=== PATIENT | female | born 1990 | race Caucasian/White ===

== ENCOUNTER → 2018-04-19 | Outpatient (REF) | payer OTHER | LOC: M LAB REF 04-20 11:18 | DX: N30.01 Acute cystitis with hematuria (principal) | CPT/HCPCS: 87186 ==

== ENCOUNTER 2021-08-05 13:45 | Outpatient (RCR) | payer OTHER | END 2021-08-11 | LOC: M PT 13:45 | PROVIDERS: ATTEND Family Medicine | DX: M75.21 Bicipital tendinitis, right shoulder (principal) ==

== ENCOUNTER 2021-08-25 14:30 | Outpatient (RCR) | payer OTHER | END 2021-09-11 | LOC: M PT 14:30 | PROVIDERS: ATTEND Family Medicine | DX: M75.21 Bicipital tendinitis, right shoulder (principal) ==

== ENCOUNTER 2022-03-30 17:59 | Emergency (ER) | payer OTHER ==
[~2022-03-30] VITALS: Ht 162.6 cm; Wt 130.7 kg
[2022-03-30 21:19] LABS: BASO % 0.5 % (0.0-1.0); EOS % 0.1 % (0.0-3.0); HEMATOCRIT 42.7 % (36.0-47.0); HEMOGLOBIN 14.2 g/dl (12.0-15.5); LYMPH # 1.2 10^3/uL (1.5-5.0); LYMPH % 13.9 % (24.0-44.0); MEAN CORPUSCULAR HEMOGLOBIN 28.6 pg (27.0-33.0); MEAN CORPUSCULAR HGB CONC 33.3 g/dl (32.0-36.5); MEAN CORPUSCULAR VOLUME 86.1 fl (80.0-96.0); MONO # 0.3 10^3/uL (0.0-0.8); MONO % 3.1 % (2.0-8.0); NEUTROPHILS # 7.2 10^3/uL (1.5-8.5); NEUTROPHILS % 81.9 % (36.0-66.0); PLATELET COUNT, AUTOMATED 254 10^3/uL (150-450); RED BLOOD COUNT 4.96 10^6/uL (4.00-5.40); WHITE BLOOD COUNT 8.8 10^3/uL (4.0-10.0)
[2022-03-30 22:04] LABS: ALBUMIN 3.8 GM/DL (3.2-5.2); ALT/SGPT 27 U/L (12-78); BILIRUBIN,DIRECT 0.1 MG/DL (0.0-0.2); BILIRUBIN,TOTAL 0.4 MG/DL (0.2-1.0); LIPASE 155 U/L (73-393); TOTAL PROTEIN 8.1 GM/DL (6.4-8.2)
[2022-03-30 22:35] LABS: BLOOD UREA NITROGEN 11 MG/DL (7-18); CALCIUM LEVEL 8.7 MG/DL (8.5-10.1); CARBON DIOXIDE LEVEL 24 MEQ/L (21-32); CHLORIDE LEVEL 106 MEQ/L (98-107); CREATININE FOR GFR 0.72 MG/DL (0.55-1.30); GLOMERULAR FILTRATION RATE > 60.0 (>60); GLUCOSE, FASTING 104 MG/DL (70-100); POTASSIUM SERUM 4.3 MEQ/L (3.5-5.1); SODIUM LEVEL 137 MEQ/L (136-145)
[2022-03-30] MEDS ORDERED: ONDA4TAB6 PO (22:41)
[2022-03-30] MEDS ORDERED: ONDANSETRON 4MG ORAL DISINTEGRATING TAB PO ONE (22:50)
[2022-03-30 22:58] VITALS: BP 124/82
== END 2022-03-30 22:59 | disposition home or self-care (01) ==
LOC: M ED 17:59
DX: A08.4 Viral intestinal infection, unspecified (principal); F10.10 Alcohol abuse, uncomplicated; Z91.040 Latex allergy status; Z79.899 Other long term (current) drug therapy

== ENCOUNTER → 2022-11-05 | Outpatient (CLI) | payer OTHER ==
[~2022-11-05] MED LIST: ONDA4TAB6 PO
[2022-11-05 17:26] LABS: HEMOGLOBIN 12.4 g/dl (12.0-15.5); MEAN CORPUSCULAR HEMOGLOBIN 28.2 pg (27.0-33.0); MEAN CORPUSCULAR HGB CONC 33.5 g/dl (32.0-36.5); MEAN CORPUSCULAR VOLUME 84.1 fl (80.0-96.0); PLATELET COUNT, AUTOMATED 222 10^3/uL (150-450)
[2022-11-05 17:30] LABS: HEMOGLOBIN A1c 4.9 % (4.0-6.0)
[2022-11-05 17:44] LABS: ALBUMIN 3.4 G/DL (3.2-5.2); ALKALINE PHOSPHATASE 92 U/L (46-116); ALT/SGPT 92 U/L (7.0-40); AST/SGOT 59 U/L (<34); BILIRUBIN,DIRECT 0.1 MG/DL (<0.4); BILIRUBIN,TOTAL 0.3 MG/DL (0.3-1.2); BLOOD UREA NITROGEN 11 MG/DL (9-23); CALCIUM LEVEL 8.7 MG/DL (8.5-10.1); CARBON DIOXIDE LEVEL 27 MMOL/L (20-31); CHLORIDE LEVEL 107 MMOL/L (98-107); CHOLESTEROL LEVEL 118 MG/DL (<200); CHOLESTEROL RISK RATIO 3.45 (<5); CREATININE FOR GFR 0.69 MG/DL (0.55-1.30); GLOMERULAR FILTRATION RATE > 60.0 (>60); GLUCOSE, FASTING 78 MG/DL (60-100); HDL CHOLESTEROL 34.2 MG/DL (>40); NON-HDL-C 83.8 MG/DL; PHOSPHORUS LEVEL 3.6 MG/DL (2.5-4.9); POTASSIUM SERUM 3.8 MMOL/L (3.5-5.1); SODIUM LEVEL 141 MMOL/L (136-145); TOTAL PROTEIN 6.4 G/DL (5.7-8.2); TRIGLYCERIDES LEVEL 189 MG/DL (<150)
[2022-11-05 17:46] LABS: THYROID STIMULATING HORMONE 2.426 uIU/ML (0.55-4.78); TOTAL 25(OH) VITAMIN D 12.5 NG/ML (20.0-100.0)
[2022-11-05 19:42] LABS: ATYPICAL LYMPH 5 % (0-5); BASOPHILS 1 % (0-1); EOSINOPHILS 4 % (0-3); LYMPHOCYTES 34 % (16-44); MONOCYTES 8 % (0-5); NEUTROPHILS 48 % (28-66)
[2022-11-05 19:43] LABS: PLATELET ESTIMATE NORMAL (NORMAL)
== END ==
LOC: M EKG 16:16
PROVIDERS: ATTEND Registered Nurse
DX: F32.9 Major depressive disorder, single episode, unspecified (principal); E55.9 Vitamin D deficiency, unspecified; Z51.81 Encounter for therapeutic drug level monitoring; Z13.9 Encounter for screening, unspecified; Z79.899 Other long term (current) drug therapy

== ENCOUNTER 2023-07-27 05:11 | Emergency (ER) | payer OTHER ==
[~2023-07-27] VITALS: Ht 162.6 cm; Wt 149.9 kg
[2023-07-27] MEDS ORDERED: BUPR75TA5 (05:23)
[2023-07-27 06:36] LABS: BASO % 0.6 % (0.0-1.0); EOS # 0.2 10^3/uL (0.0-0.5); EOS % 2.8 % (0.0-3.0); HEMATOCRIT 38.1 % (36.0-47.0); HEMOGLOBIN 12.6 g/dl (12.0-15.5); LYMPH # 2.1 10^3/uL (1.5-5.0); LYMPH % 31.5 % (24.0-44.0); MEAN CORPUSCULAR HEMOGLOBIN 27.5 pg (27.0-33.0); MEAN CORPUSCULAR HGB CONC 33.1 g/dl (32.0-36.5); MONO # 0.5 10^3/uL (0.0-0.8); MONO % 8.1 % (2.0-8.0); NEUTROPHILS # 3.7 10^3/uL (1.5-8.5); NEUTROPHILS % 56.8 % (36.0-66.0); PLATELET COUNT, AUTOMATED 214 10^3/uL (150-450); RED BLOOD COUNT 4.59 10^6/uL (4.00-5.40); WHITE BLOOD COUNT 6.5 10^3/uL (4.0-10.0)
[2023-07-27 06:40] LABS: BLOOD UREA NITROGEN 11 MG/DL (9-23); CALCIUM LEVEL 8.9 MG/DL (8.5-10.1); CARBON DIOXIDE LEVEL 26 MMOL/L (20-31); CHLORIDE LEVEL 105 MMOL/L (98-107); CK-MB VALUE MASS 1.8 NG/ML (<3.6); CREATININE FOR GFR 0.72 MG/DL (0.55-1.30); GLOMERULAR FILTRATION RATE > 60.0 (>60); GLUCOSE, FASTING 94 MG/DL (60-100); POTASSIUM SERUM 3.6 MMOL/L (3.5-5.1); SODIUM LEVEL 137 MMOL/L (136-145)
[2023-07-27 06:41] LABS: CPK CREATINE PHOSPHOKINASE 245 U/L (34-145); MB/CK RELATIVE INDEX 0.73 (< OR =4)
[2023-07-27] MEDS ORDERED: ISOVUE-370 76% 100ML VIAL As Ordered ONE (08:11)
[2023-07-27] MEDS: ASPIRIN 325 MG TAB PO ONE (08:25)
[2023-07-27 08:52] LABS: CK-MB VALUE MASS 1.5 NG/ML (<3.6)
[2023-07-27 09:00] LABS: CPK CREATINE PHOSPHOKINASE 228 U/L (34-145); MB/CK RELATIVE INDEX 0.65 (< OR =4)
[2023-07-27 10:00] VITALS: BP 108/56; TEMP 97.3; O2SAT 99
== END 2023-07-27 10:18 | disposition home or self-care (01) ==
LOC: M ED 05:11
DX: R07.9 Chest pain, unspecified (principal); R91.1 Solitary pulmonary nodule; E04.1 Nontoxic single thyroid nodule; F17.200 Nicotine dependence, unspecified, uncomplicated; Z91.040 Latex allergy status; Z79.899 Other long term (current) drug therapy
CPT/HCPCS: 36415; 71045; 71275; 80048; 82550; 82553; 85025; 93005; 93041; 94760; 99285; Q9967

== ENCOUNTER 2023-10-18 20:15 | Emergency (ER) | payer OTHER ==
[~2023-10-18] VITALS: Ht 162.6 cm; Wt 149.1 kg
[~2023-10-18 20:15] MED LIST changes: +BUPR75TA5
[2023-10-18] MEDS ORDERED: RISP0.5T82 (20:27)
[2023-10-18] MEDS ORDERED: AMPH1CAP14 (20:27)
[2023-10-19] MEDS ORDERED: LIDO5DIS41 TD (03:52)
[2023-10-19] MEDS ORDERED: IBUP-1022 PO (03:52)
[2023-10-19] MEDS: IBUPROFEN 600MG TAB PO ONE (03:55)
[2023-10-19] MEDS: LIDOCAINE 5% (LIDODERM) PATCH TD ONE (03:55)
[2023-10-19 04:13] VITALS: BP 124/77; TEMP 98.8; O2SAT 98
== END 2023-10-19 04:17 | disposition home or self-care (01) ==
LOC: M ED 20:15
DX: M25.511 Pain in right shoulder (principal); X50.0XXA Overexertion from strenuous movement or load, initial encounter; Y92.9 Unspecified place or not applicable; Y93.89 Activity, other specified; Y99.0 Civilian activity done for income or pay; Z91.040 Latex allergy status; Z79.1 Long term (current) use of non-steroidal anti-inflammatories (NSAID); Z79.899 Other long term (current) drug therapy

== ENCOUNTER → 2024-04-17 | Outpatient (REF) | payer OTHER ==
[~2024-04-17] MED LIST changes: +AMPH1CAP14; +ATOM80CA6 PO; +IBUP-1022 PO; +LIDO5DIS41 TD; +ONDA-282 PO; -ONDA4TAB6 PO; +RISP0.5T82
== END ==
LOC: M LAB REF 16:39
PROVIDERS: ATTEND Physician Assistant Medical
DX: J02.9 Acute pharyngitis, unspecified (principal)

== ENCOUNTER 2024-04-19 13:44 | Inpatient (IN) | payer OTHER ==
[~2024-04-19] VITALS: Ht 162.6 cm; Wt 154.8 kg
[~2024-04-19 13:44] MED LIST changes: -ATOM80CA6 PO
[2024-04-19] MEDS: BOOSTRIX VACCINE (TETANUS/DIPHTH/ACEL. PERTUSSIS) 0.5ML SYR IM.IMMUN ONE (15:32)
[2024-04-19] MEDS: ACETAMINOPHEN 325 MG TAB PO ONE (15:32)
[2024-04-19] MEDS: NS 1,000 ML IV ONE (16:10)
[2024-04-19] MEDS ORDERED: ATOM80CA6 PO (16:51)
[2024-04-19] MEDS ORDERED: HOME MED LIST COMPLETE! XX SCH (16:55)
[2024-04-19 17:06] LABS: BASO % 0.4 % (0.0-1.0); EOS # 0.2 10^3/uL (0.0-0.5); EOS % 1.9 % (0.0-3.0); HEMATOCRIT 39.3 % (36.0-47.0); HEMOGLOBIN 13.1 g/dl (12.0-15.5); LYMPH # 1.4 10^3/uL (1.5-5.0); MEAN CORPUSCULAR HEMOGLOBIN 27.6 pg (27.0-33.0); MEAN CORPUSCULAR HGB CONC 33.3 g/dl (32.0-36.5); MEAN CORPUSCULAR VOLUME 82.9 fl (80.0-96.0); MONO # 0.4 10^3/uL (0.0-0.8); MONO % 5.3 % (2.0-8.0); PLATELET COUNT, AUTOMATED 229 10^3/uL (150-450); RED BLOOD COUNT 4.74 10^6/uL (4.00-5.40)
[2024-04-19 17:27] LABS: BLOOD UREA NITROGEN 11 MG/DL (9-23); CALCIUM LEVEL 9.2 MG/DL (8.5-10.1); CARBON DIOXIDE LEVEL 28 MMOL/L (20-31); CHLORIDE LEVEL 104 MMOL/L (98-107); CREATININE FOR GFR 0.71 MG/DL (0.55-1.30); GLOMERULAR FILTRATION RATE > 60.0 (>60); GLUCOSE, FASTING 81 MG/DL (60-100); SODIUM LEVEL 137 MMOL/L (136-145)
[2024-04-19 17:34] LABS: PROCALCITONIN <0.04 ng/ml
[2024-04-19 18:00] VITALS: BP 113/77; TEMP 98.2; O2SAT 98
[2024-04-19] MEDS: MORPHINE 4 MG/ML 1ML VIAL IV PRN (18:21)
[2024-04-19] MEDS: KETOROLAC 30 MG/ML 1ML VIAL IV PRN (19:44)
[2024-04-19 20:08] VITALS: BP 98/57; TEMP 97.9; O2SAT 98
[2024-04-19] MEDS: HEPARIN SOD (PORCINE) 5000UNITS/ML 1ML VIAL/SYRINGE SQ SCH (21:20)
[2024-04-19] MEDS: RAMELTEON 8 MG TAB (ROZEREM) PO PRN (21:58)
[2024-04-20] VITALS (9 sets, daily range): BP systolic 98–133; BP diastolic 57–83; TEMP 97.2–98.4; O2SAT 93–97
[2024-04-20 06:04] LABS: HEMATOCRIT 35.4 % (36.0-47.0); HEMOGLOBIN 11.8 g/dl (12.0-15.5); MEAN CORPUSCULAR HEMOGLOBIN 27.5 pg (27.0-33.0); MEAN CORPUSCULAR HGB CONC 33.3 g/dl (32.0-36.5); MEAN CORPUSCULAR VOLUME 82.5 fl (80.0-96.0); PLATELET COUNT, AUTOMATED 205 10^3/uL (150-450); RED BLOOD COUNT 4.29 10^6/uL (4.00-5.40); WHITE BLOOD COUNT 5.3 10^3/uL (4.0-10.0)
[2024-04-20 06:32] LABS: BLOOD UREA NITROGEN 11 MG/DL (9-23); CALCIUM LEVEL 8.6 MG/DL (8.5-10.1); CARBON DIOXIDE LEVEL 27 MMOL/L (20-31); CHLORIDE LEVEL 105 MMOL/L (98-107); GLOMERULAR FILTRATION RATE > 60.0 (>60); GLUCOSE, FASTING 105 MG/DL (60-100); POTASSIUM SERUM 3.8 MMOL/L (3.5-5.1); SODIUM LEVEL 138 MMOL/L (136-145)
[2024-04-20] MEDS: LR 1,000 ML IV SCH (08:20)
[2024-04-20] MEDS: ATOMOXETINE HCL 40 MG CAP (STRATTERA) PO SCH (09:00)
[2024-04-20 12:43] LABS: URINE PREG TEST NEGATIVE (NEGATIVE)
[2024-04-20] MEDS ORDERED: propofoL 200 MG/20 ML VIAL As Ordered ONE (14:28)
[2024-04-20] MEDS ORDERED: ROCURONIUM BROMIDE 50MG/5ML VIAL As Ordered ONE (14:28)
[2024-04-20] MEDS ORDERED: LIDOCAINE 2% 100MG/5ML SDV (FOR ANES.) As Ordered ONE (14:28)
[2024-04-20] MEDS ORDERED: GLYCOPYRROLATE INJ 0.2 MG/ML 2 ML VIAL As Ordered ONE (14:29)
[2024-04-20] MEDS ORDERED: ONDANSETRON 4MG 2ML VIAL As Ordered ONE (14:29)
[2024-04-20] MEDS ORDERED: MIDAZOLAM INJ 2MG/2ML VIAL As Ordered ONE (14:35)
[2024-04-20] MEDS ORDERED: fentaNYL 100 MCG/2 ML INJECTION As Ordered ONE (14:35)
[2024-04-20] MEDS ORDERED: KETAMINE HCL 200MG/20ML VIAL As Ordered ONE (15:05)
[2024-04-20] MEDS: ceFAZolin 1GM VIAL As Ordered ONE (15:15)
[2024-04-20] MEDS: ceFAZolin 2 GM/D5W 50 ML IV BAG As Ordered ONE (15:15)
[2024-04-20] MEDS ORDERED: ePHEDrine SULFATE 25 MG/5 ML(5MG/ML) SYRINGE As Ordered ONE (15:55)
[2024-04-20] MEDS ORDERED: SUGAMMADEX SODIUM 500 MG/5 ML VIAL (BRIDION) As Ordered ONE (16:33)
[2024-04-20] MEDS: fentaNYL 100 MCG/2 ML INJECTION IV PRN (17:21)
[2024-04-20] MEDS ORDERED: HYDROMORPHONE HCL 0.5 MG/ 0.5 ML SYRINGE IV PRN (17:40)
[2024-04-20] MEDS ORDERED: ONDANSETRON 4MG 2ML VIAL IV PRN (17:40)
[2024-04-20] MEDS: oxyCODONE 5MG TAB PO PRN (17:51)
[2024-04-20] MEDS: METOCLOPRAMIDE INJ 10MG/2ML VIAL IV PRN (18:02)
[2024-04-20] MEDS: ACETAMINOPHEN 500 MG TAB PO PRN (23:09)
[2024-04-20] MEDS: ceFAZolin SOD 2 GM in IV 1 EA IV SCH (23:09)
[2024-04-21 04:02] VITALS: BP 121/77; TEMP 98.1; O2SAT 93
[2024-04-21] MEDS: PERCOCET 5MG/325MG TAB PO PRN ×2 (11:00→22:20)
[2024-04-21 11:01] VITALS: BP 120/77; TEMP 98.1; O2SAT 94
[2024-04-21 12:35] VITALS: BP 122/66; TEMP 97.9
[2024-04-21] MEDS: ACETAMINOPHEN 325 MG TAB PO PRN (14:51)
[2024-04-21] MEDS: RIVAROXABAN 10MG TAB (XARELTO) PO SCH (17:04)
[2024-04-22] MEDS: KETOROLAC 30 MG/ML 1ML VIAL IV ONE (01:02)
[2024-04-22] MEDS: METHOCARBAMOL 1,000 MG/10 ML VIAL IV ONE (01:02)
[2024-04-22 04:00] VITALS: BP 112/72; TEMP 96.8; O2SAT 93
[2024-04-22 07:39] LABS: HEMATOCRIT 31.5 % (36.0-47.0); HEMOGLOBIN 10.5 g/dl (12.0-15.5); MEAN CORPUSCULAR HEMOGLOBIN 27.9 pg (27.0-33.0); MEAN CORPUSCULAR HGB CONC 33.3 g/dl (32.0-36.5); MEAN CORPUSCULAR VOLUME 83.6 fl (80.0-96.0); PLATELET COUNT, AUTOMATED 189 10^3/uL (150-450); RED BLOOD COUNT 3.77 10^6/uL (4.00-5.40); WHITE BLOOD COUNT 6.6 10^3/uL (4.0-10.0)
[2024-04-22] MEDS: methocarbamoL 750 MG TAB PO PRN (10:42)
[2024-04-22] MEDS: SENNA 8.6 MG TAB (SENOKOT) PO PRN (18:18)
[2024-04-23 06:33] VITALS: BP 111/72; TEMP 98.6; O2SAT 92
[2024-04-23] MEDS: BISACODYL 10MG SUPP PR ONE (08:06)
[2024-04-23] MEDS: MIRALAX *UNIT DOSE* 17GM PACKET PO PRN (20:48)
[2024-04-24 03:54] VITALS: BP 106/69; TEMP 97.5; O2SAT 94
[2024-04-24 08:30] VITALS: BP 116/82; TEMP 98.6; O2SAT 97
[2024-04-25 03:58] VITALS: BP 114/77; TEMP 98.1; O2SAT 95
[2024-04-25 06:10] LABS: HEMATOCRIT 31.8 % (36.0-47.0); HEMOGLOBIN 10.2 g/dl (12.0-15.5); MEAN CORPUSCULAR HEMOGLOBIN 27.3 pg (27.0-33.0); MEAN CORPUSCULAR HGB CONC 32.1 g/dl (32.0-36.5); PLATELET COUNT, AUTOMATED 259 10^3/uL (150-450); RED BLOOD COUNT 3.74 10^6/uL (4.00-5.40); WHITE BLOOD COUNT 6.4 10^3/uL (4.0-10.0)
[2024-04-26 05:28] VITALS: BP 119/66; TEMP 97.5; O2SAT 96
[2024-04-26 15:18] LABS: CK-MB VALUE MASS < 1.0 NG/ML (<3.6)
[2024-04-26 15:19] LABS: CPK CREATINE PHOSPHOKINASE 274 U/L (34-145); MB/CK RELATIVE INDEX 0.36 (< OR =4)
[2024-04-27 04:30] VITALS: BP 118/70; TEMP 98.2; O2SAT 97
[2024-04-28 04:30] VITALS: BP 115/68; TEMP 97.2; O2SAT 97
[2024-04-28 06:05] LABS: HEMATOCRIT 33.3 % (36.0-47.0); HEMOGLOBIN 10.6 g/dl (12.0-15.5); MEAN CORPUSCULAR HEMOGLOBIN 26.8 pg (27.0-33.0); MEAN CORPUSCULAR HGB CONC 31.8 g/dl (32.0-36.5); MEAN CORPUSCULAR VOLUME 84.3 fl (80.0-96.0); PLATELET COUNT, AUTOMATED 307 10^3/uL (150-450); RED BLOOD COUNT 3.95 10^6/uL (4.00-5.40); WHITE BLOOD COUNT 7.4 10^3/uL (4.0-10.0)
[2024-04-28] MEDS ORDERED: METH-1165 PO (07:12)
[2024-04-28] MEDS ORDERED: XARE10TA PO (07:12)
[2024-04-28] MEDS ORDERED: PERCOCET PO (07:12)
[2024-04-28] MEDS ORDERED: MIRA33506 PO (07:12)
[2024-04-28] MEDS ORDERED: SENO8.6T5 PO (07:12)
[2024-04-28 08:19] VITALS: BP 114/68; TEMP 97.9; O2SAT 98
[2024-04-28] MEDS ORDERED: CYCL5TAB4 PO (12:02)
== END 2024-04-28 12:30 | DRG 313 ==
LOC: M ED 13:44 → EDBD 13:44 → M ED INP 16:12 → M MS5PR 17:40
PROVIDERS: ADMIT Internal Medicine; ATTEND Internal Medicine
PROC: 0QSG04Z Reposition Right Tibia with Internal Fixation Device, Open Approach (ICD-10-PCS; principal; 2024-04-20 13:00)
DX: S82.141A Displaced bicondylar fracture of right tibia, initial encounter for closed fracture (principal); Z68.43 Body mass index [BMI] 50.0-59.9, adult; E66.01 Morbid (severe) obesity due to excess calories; E04.1 Nontoxic single thyroid nodule; F39 Unspecified mood [affective] disorder; F90.9 Attention-deficit hyperactivity disorder, unspecified type; V89.2XXA Person injured in unspecified motor-vehicle accident, traffic, initial encounter; K59.00 Constipation, unspecified; R07.89 Other chest pain; Z91.040 Latex allergy status; Z87.891 Personal history of nicotine dependence

== ENCOUNTER → 2024-05-10 | Outpatient (CLI) | payer OTHER ==
[~2024-05-10] MED LIST changes: +ATOM80CA6 PO; +CYCL5TAB4 PO; +METH-1165 PO; +MIRA33506 PO; +PERCOCET PO; +SENO8.6T5 PO; +XARE10TA PO
== END ==
LOC: M SOG 07:49
PROVIDERS: ATTEND Physician Assistant
DX: S82.121D Displaced fracture of lateral condyle of right tibia, subsequent encounter for closed fracture with routine healing (principal)

== ENCOUNTER → 2024-06-09 | Outpatient (CLI) | payer OTHER | LOC: M SOG 07:54 | PROVIDERS: ATTEND Physician Assistant | DX: S82.121A Displaced fracture of lateral condyle of right tibia, initial encounter for closed fracture (principal); Y93.9 Activity, unspecified; Y92.9 Unspecified place or not applicable ==

== ENCOUNTER 2024-08-03 14:51 | Outpatient (RCR) | payer OTHER | END 2024-08-11 | LOC: M PT 14:51 | PROVIDERS: ATTEND Physician Assistant | DX: S82.121A Displaced fracture of lateral condyle of right tibia, initial encounter for closed fracture (principal); X58.XXXA Exposure to other specified factors, initial encounter; Y92.9 Unspecified place or not applicable ==

== ENCOUNTER → 2024-08-09 | Outpatient (CLI) | payer OTHER | LOC: M RAD 13:25 | PROVIDERS: ATTEND Student in an Organized Health Care Education/Training Program | DX: Z53.9 Procedure and treatment not carried out, unspecified reason (principal) ==

== ENCOUNTER → 2024-08-11 | Outpatient (CLI) | payer OTHER | LOC: M SOG 07:50 | PROVIDERS: ATTEND Physician Assistant | DX: S82.121A Displaced fracture of lateral condyle of right tibia, initial encounter for closed fracture (principal) ==

== ENCOUNTER 2024-09-08 08:30 | Outpatient (RCR) | payer OTHER | END 2024-09-11 | LOC: M PT 08:30 | PROVIDERS: ATTEND Physician Assistant | DX: S82.121D Displaced fracture of lateral condyle of right tibia, subsequent encounter for closed fracture with routine healing (principal) ==

== ENCOUNTER → 2024-09-08 | Outpatient (CLI) | payer OTHER | LOC: M SOG 07:50 | PROVIDERS: ATTEND Physician Assistant | DX: S82.121D Displaced fracture of lateral condyle of right tibia, subsequent encounter for closed fracture with routine healing (principal) ==

== ENCOUNTER → 2024-09-15 | Outpatient (CLI) | payer OTHER | LOC: M RAD 14:34 | PROVIDERS: ATTEND Family Medicine | DX: E04.1 Nontoxic single thyroid nodule (principal) ==

== ENCOUNTER 2024-10-09 09:06 | Outpatient (RCR) | payer OTHER | END 2024-10-11 | LOC: M PT 09:06 | PROVIDERS: ATTEND Physician Assistant | DX: S82.121D Displaced fracture of lateral condyle of right tibia, subsequent encounter for closed fracture with routine healing (principal) ==

== ENCOUNTER → 2024-10-12 | Outpatient (CLI) | payer OTHER ==
[2024-10-12 19:11] LABS: HEMATOCRIT 39.4 % (36.0-47.0); HEMOGLOBIN 12.6 g/dl (12.0-15.5); MEAN CORPUSCULAR HEMOGLOBIN 26.5 pg (27.0-33.0); MEAN CORPUSCULAR VOLUME 82.8 fl (80.0-96.0); PLATELET COUNT, AUTOMATED 248 10^3/uL (150-450); RED BLOOD COUNT 4.76 10^6/uL (4.00-5.40); WHITE BLOOD COUNT 5.7 10^3/uL (4.0-10.0)
[2024-10-12 19:43] LABS: FERRITIN 22.8 NG/ML (7.3-270.7)
[2024-10-12 19:44] LABS: PERCENT SATURATION 12.6 % (13.2-45.0)
[2024-10-12 19:45] LABS: FOLATE 6.24 NG/ML (>5.4)
== END ==
LOC: M PLALAB 15:11
PROVIDERS: ATTEND Student in an Organized Health Care Education/Training Program
DX: D64.9 Anemia, unspecified (principal)

== ENCOUNTER 2024-12-28 12:00 | Outpatient (RCR) | payer OTHER ==
[~2024-12-28 12:00] MED LIST changes: +LIDO1ADH93 TD; -LIDO5DIS41 TD; +SENN-225 PO; -SENO8.6T5 PO
== END 2025-01-11 ==
LOC: M PT 12:00
PROVIDERS: ATTEND Physician Assistant
DX: S82.121D Displaced fracture of lateral condyle of right tibia, subsequent encounter for closed fracture with routine healing (principal)

== ENCOUNTER 2025-01-12 13:32 | Outpatient (RCR) | payer OTHER ==
[~2025-01-12 13:32] MED LIST changes: -IBUP-1022 PO; +IBUP600T42 PO
== END 2025-02-11 ==
LOC: M PT 13:32
PROVIDERS: ATTEND Physician Assistant
DX: S82.121D Displaced fracture of lateral condyle of right tibia, subsequent encounter for closed fracture with routine healing (principal)

== ENCOUNTER → 2025-02-21 | Outpatient (REF) | LOC: M PLAIMG 14:50 | PROVIDERS: ATTEND Internal Medicine | DX: M79.661 Pain in right lower leg (principal) ==